=== PATIENT | female | born 1960 | race Caucasian/White ===

== ENCOUNTER → 2020-05-06 | Outpatient (CLI) | payer OTHER ==
[2020-05-06 11:14] LABS: BUN/CREATININE RATIO 27 (0-10)
[2020-05-07 08:14] LABS: HIV SCREEN 4TH GENERATION WRFX Non Reactive (Non Reactive)
[2020-05-07 12:14] LABS: RHEUMATOID ARTHRITIS FACTOR <10.0 IU/mL (0.0-13.9)
[2020-05-07 14:14] LABS: ANGIOTENSIN-CONVERTING ENZYME 49 U/L (14-82)
[2020-05-07 15:14] LABS: T PALLIDUM AB (FTA-AB) Non Reactive (Non Reactive)
[2020-05-07 16:14] LABS: ATYPICAL PANCA <1:20 titer (Neg:<1:20); CYTOPLASMIC (C-ANCA) <1:20 titer (Neg:<1:20); LYME IGG/IGM AB <0.91 ISR (0.00-0.90); PERINUCLEAR (P-ANCA) <1:20 titer (Neg:<1:20)
[2020-05-07 18:08] LABS: TREPONEMA PALLIDUM ANTIBODIES Non Reactive (Non Reactive)
[2020-05-10 12:10] LABS: QUANTIFERON MITOGEN VALUE >10.00 IU/mL (.); QUANTIFERON NIL VALUE 0.01 IU/mL (.); QUANTIFERON TB1 AG VALUE 0.03 IU/mL (.); QUANTIFERON TB2 AG VALUE 0.05 IU/mL (.); QUANTIFERON-TB GOLD PLUS Negative (Negative)
[2020-05-13 12:10] LABS: HLA B 27 DISEASE ASSOCIATION Positive (.)
== END ==
LOC: LAB 10:15
PROVIDERS: Ophthalmology
DX: H15.109 Unspecified episcleritis, unspecified eye (principal)
CPT/HCPCS: 36415; 80053; 81374; 82164; 85549; 86038; 86256; 86431; 86618; 86780; 87389